=== PATIENT | female | born 1985 | race Caucasian/White ===

== ENCOUNTER 2019-05-18 09:25 | Emergency (ER) | payer OTHER ==
--- OUTSIDE RECORDS SUMMARY | 2019-05-18 09:35 | XMS REPORT | Continuity of Care Document ---
:1985 External Reference #:[id number] Author Name Leonie Weber M.D., FACP (transmitted by agent of provider Baylee Faulkner) Address [address] [place] [address] Care Team Providers Name Role Phone Leonie Weber MD - Internal Medicine Care Team Information Grape Crusher [phone] Problems Description No Information Available Social History Type Date Description Comments Sex Unknown Tobacco Use Start: Unknown Patient has never smoked Smoking Status Reviewed: 04/27/19 Patient has never smoked Allergies, Adverse Reactions, Alerts Active Allergies Reaction Severity Comments Date Dust Mites Nasal congestion 04/27/2019 Medications Active Medications SIG Qnty Indications Ordering Provider Date Levonorgestrel/Ethinyl 1 by mouth every Unknown Estradiol day 0.15-0.03&0.01mg Tablets Naproxen 1 by mouth twice Unknown 375mg Tablets a day Immunizations CPT Code Status Date Vaccine Lot # [id number] Given 04/27/2019 Influenza Virus Vaccine, Quadrivalent, Split, [id number] Preservative Free Vital Signs Date Vital Result Comment 04/27/2019 2:40pm Height 67 inches 5'7" Weight 136.38 lb Heart Rate 86 /min BP Systolic 98 mmHg BP Diastolic 54 mmHg Body Temperature 97.4 F O2 % BldC Oximetry 98 % BMI (Body Mass Index) 21.4 kg/m2 Results Description No Information Available Procedures Description No Information Available Medical Devices Description No Information Available Encounters Description No Information Available Assessments Date Code Description Provider 04/27/2019 K21.9 Gastro-esophageal reflux disease without Leonie Weber M.D. , FACP esophagitis 04/27/2019 F41.9 Anxiety disorder, unspecified Leonie Weber M.D., FACP 04/27/2019 Z13.220 Encounter for screening for lipoid Leonie Weber M.D., FACP disorders 04/27/2019 Z23 [facility]counter [facility] Future Appointment(s):09/05/2019 1:00 pm - Leonie Weber M.D., FACP at [facility] - [facility]04/27/2019 - Leonie Weber M.D., FACPK21.9 Gastro- esophageal reflux disease without esophagitisComments:ACID REFLUX:Try to avoid NSAID's such as ibuprofen and naprosyn.You may use omeprazole on an as needed basis.Try not to eat late at night.Follow the written instructions regarding nonpharmacologic strategies.F41.9 Anxiety disorder, unspecifiedComments: SITUATIONAL ANXIETY:I am glad to know that you are doing well overall.It sounds like you have some effective strategies to manage your stress.Let me know if you feel your sleep patterns change.Z13.220 Encounter for screening for lipoid disordersFollow up:schedule [facility] PEZ23 Encounter for immunization Functional Status Description No Information Available Mental Status Description No Information Available Referrals Description No Information Available
--- OUTSIDE RECORDS SUMMARY | 2019-05-18 09:35 | XMS REPORT | Continuity of Care Document ---
:1985 External Reference #:[id number] Author Name Nhi Oliver O.D. Address [address] [place] [address] Problems Active Problems Provider Date Myopia Nhi Oliver O.D. Onset: 04/12/2019 Vitreous degeneration Nhi Oliver O.D. Onset: 04/12/2019 Regular astigmatism Nhi Oliver O.D. Onset: 04/12/2019 Social History Type Date Description Comments Sex Unknown ETOH Use Occasionally consumes alcohol Tobacco Use Start: Unknown Patient has never smoked Recreational Drug Use Denies Drug Use Smoking Status Reviewed: 04/12/19 Patient has never smoked Allergies, Adverse Reactions, Alerts Description No Known Drug Allergies Medications Active Medications SIG Qnty Indications Ordering Provider Date Lillow Unknown 0.15-30mg-mcg Tablets Immunizations Description No Information Available Vital Signs Description No Information Available Results Description No Information Available Procedures Description No Information Available Medical Devices Description No Information Available Encounters Description No Information Available Assessments Date Code Description Provider 04/12/2019 H43.813 Vitreous degeneration, bilateral Nhi Oliver O.D. 04/12/2019 H52.13 Myopia, bilateral Nhi Oliver O.D. 04/12/2019 H52.223 Regular astigmatism, bilateral Nhi Oliver O.D. Plan of Treatment 04/12/2019 - Nhi Oliver O.D.H43.813 Vitreous degeneration, bilateralComments:You have Vitreous Floaters. If you have any changed in your floaters or flashing lights, please contact this office.H52.13 Myopia, bilateralComments:You have Myopia, or near sightedness. I have given you a prescription for glasses.Follow up:2 years You can expect to have your eyes dilated at your next visit. If Dr. Oliver orders any additional testing, it may require extra time. We recommend that you bring sunglasses, as dilation drops often make you light sensitive until they wear off. We always recommend you bring someone to drive youhome if you are uncomfortable driving with your eyes dilated. If you have any questions before your next visit, feel free to call our office at .h52.223 Regular astigmatism, bilateralComments: Smoking can increase the risk of developing or worsening any eye related disease , as well as affect your overall health. If you are a smoker, we strongly recommend that you quit.If you are not a smoker, we strongly recommend that you do not start. Astigmatism is a common vision condition that happens when a person's cornea is not symmetrical. Dr. Oliver has given you a prescription to correct for this. Functional Status Description No Information Available Mental Status Description No Information Available Referrals Description No Information Available
[2019-05-18 10:19] VITALS: BP 98/61
--- NOTE | 2019-05-18 11:01 | UC ---
General HPI - HPI Summary HPI Summary: Patient is a 34yo female presenting with injury to lower lip when her dog "head- butted" her while they were playing a couple hours ago. Patient states that she bit her lower lip and there are puncture mcdowell externally and internally. States it bled immediately but stopped after several minutes. Notes some swelling. Denies pain. States she "feels shaken up." Denies broken teeth. Has applied ice. - History of Current Complaint Chief Complaint: UCLaceration Stated Complaint: LIP INJURY Hx Obtained From: Patient Hx Last Menstrual Period: 04/28/19 Pain Intensity: 1 - Allergy/Home Medications Allergies/Adverse Reactions: Allergies Allergy/AdvReac Type Severity Reaction Status Date / Time No Known Allergies Allergy Verified 05/18/19 10:14 Home Medications: Home Medications Levonorgestrel-Ethin Estradiol [Levora 0.15/30-28 0.15-30 mg-Mcg] 1 tab PO DAILY 05/18/19 [History Confirmed 05/18/19] PMH/Surg Hx/FS Hx/Imm Hx - Surgical History Surgical History: Yes Surgery Procedure, Year, and Place: wisdom teeth - Family History Known Family History: Positive: Non-Contributory - Social History Alcohol Use: None Substance Use Type: None Smoking Status (MU): Never Smoked Tobacco Review of Systems All Other Systems Reviewed And Are Negative: No Constitutional: Positive: Negative Skin: Positive: Other - puncture wound on lower lip Respiratory: Positive: Negative Cardiovascular: Positive: Negative Gastrointestinal: Positive: Negative Musculoskeletal: Positive: Negative Neurological/Mental Status: Positive: Negative Physical Exam - Summary Physical Exam Summary: Vital Signs Reviewed: Yes A+Ox3, no distress Eyes: Conjunctiva Clear ENT: Hearing grossly normal neck: supple Respiratory: Positive: No respiratory distress, No accessory muscle use Cardiovascular: skin color reflect adequate perfusion Musculoskeletal Exam: TSANG x 4 without difficulty Neurological: Positive: Alert, ambulatory without difficulty Psychological: Positive: age appropriate behavior, anxious Skin: Positive: superficial bite mcdowell from upper molars noted on external lower lip and ~4mm puncture wound noted on internal lower lip, nonbleeding, minimal edema, no ecchymosis, minimal TTP Vital Signs: Initial Vital Signs Temp 98.1 F 05/18/19 10:15 Pulse 66 05/18/19 10:15 Resp 16 05/18/19 10:15 BP 98/61 05/18/19 10:15 Pulse Ox 100 05/18/19 10:15 Course/Dx - Course Course Of Treatment: Discussed puncture wounds with patient and reassured her that they would heal without repair, as they are small and superficial. Informed her that swelling and bruising may continue for next couple days and instructed to apply ice and take otc analgesics. Educated on s/s of infection and instructed to return if any occur. Patient voiced understanding and agreed with treatment plan. - Diagnoses Provider Diagnosis: Puncture wound of lip Discharge ED - Sign-Out/Discharge Documenting (check all that apply): Patient Departure All imaging exams completed and their final reports reviewed: No Studies - Discharge Plan Condition: Stable Disposition: HOME Patient Education Materials: Puncture Wound (ED) Referrals: Leonie Weber MD [Primary Care Provider] - If Needed Additional Instructions: Your wound should heal well without any treatment. Continue to apply ice to alleviate swelling. You may take over the counter pain medications as directed. You may continue to swell and bruise over the next day or two. This is normal and will resolve with time. Return if you experience severe pain, drainage from the area, or fever. - Billing Disposition and Condition Condition: STABLE Disposition: Home
== END 2019-05-18 11:23 | disposition home or self-care (01) ==
LOC: UCEAST 09:25
DX: S01.531A Puncture wound without foreign body of lip, initial encounter (principal); W55.82XA Struck by other mammals, initial encounter; Y92.9 Unspecified place or not applicable
CPT/HCPCS: 99211; G0463